=== PATIENT | female | born 1970 | race Caucasian/White ===

== ENCOUNTER → 2017-08-07 06:36 | Outpatient (CLI) | payer OTHER, SELFPAY ==
[2017-08-10 12:52] LABS: HPV Reflexed? NOT INDICATED
== END ==
PROVIDERS: Visit Provider Obstetrics & Gynecology
DX: Z12.4 Encounter for screening for malignant neoplasm of cervix (principal)
CPT/HCPCS: 88175; G0145

== ENCOUNTER → 2017-08-31 16:15 | Outpatient (CLI) | payer OTHER, SELFPAY ==
--- NOTE | 2017-08-31 16:18 | HPBI_ITS ---
MAMMOGRAPHY - BILATERAL SCREENING REASON FOR EXAM: Female, 47 years old. Routine annual screening examination. PERTINENT HISTORY: Grandmother with breast cancer. TECHNIQUE: Digital bilateral breast jah (3D mammographic acquisition) in the CC and MLO projections. 2-D mediolateral oblique (MLO) and craniocaudad (CC) views of both breasts were obtained. CAD: Full Field Digital Mammography with Computer Added Detection was performed. COMPARISON: Comparison is made with prior study dated July 16, 2013. FINDINGS: Breast Composition: The breasts are heterogeneously dense, which may obscure small masses. There are no dominant masses or suspicious calcifications. No other significant abnormalities are identified. There has been no significant change since the prior study. HPBI/SCREENING MAMM (CAD), BILAT IMPRESSION: Stable bilateral screening mammogram. Yearly follow-up mammogram recommended. (A) ASSESSMENT CATEGORY: BIRADS Category 1: Negative. A letter regarding these results will be sent to the patient by the facility within 30 days. Approximately 10% of breast cancers are not detected by mammography. A normal mammogram should not delay biopsy of a clinically suspicious abnormality. [id number] Electronically Signed: Bryce Domínguez MD at 8:18 EST Tel [phone], Service support ,
== END ==
PROVIDERS: Family Provider Internal Medicine; PCP Internal Medicine; Visit Provider Obstetrics & Gynecology
DX: Z12.31 Encounter for screening mammogram for malignant neoplasm of breast (principal)
CPT/HCPCS: 77063; 77067

== ENCOUNTER → 2018-08-20 17:25 | Outpatient (CLI) | payer OTHER, SELFPAY ==
[2018-08-23 13:19] LABS: HPV Reflexed? NOT INDICATED
== END ==
PROVIDERS: Family Provider Internal Medicine; PCP Internal Medicine; Visit Provider Obstetrics & Gynecology
DX: Z12.4 Encounter for screening for malignant neoplasm of cervix (principal)
CPT/HCPCS: 88175; G0145

== ENCOUNTER → 2019-02-02 16:19 | Emergency (ER) | payer OTHER, SELFPAY ==
[2019-02-02 16:20] VITALS: BP 159/82; PULSE 80; RESP 16; TEMP 36.7; O2SAT 100; BMI 25.9
--- NOTE | 2019-02-02 16:37 | NURSING ---
PT LEFT; STATES SHE WAS GOING SOMEWHERE ELSE
== END ==
PROVIDERS: Family Provider Internal Medicine; PCP Internal Medicine
DX: R05 Cough (principal)

== ENCOUNTER → 2019-08-09 07:00 | Outpatient (CLI) | payer OTHER, SELFPAY ==
[2019-02-02 16:20] VITALS: BMI 25.9
--- NOTE | 2019-08-08 16:47 | BI_ITS ---
MAMMOGRAPHY - BILATERAL SCREENING 3-D TOMOSYNTHESIS REASON FOR EXAM: Female, 49 years old. Routine screening PERTINENT HISTORY: Grandmother with breast cancer.. TECHNIQUE: 2-D mammograms and 3-D Tomosynthesis of the breast (s) were performed. CAD was performed. COMPARISON: 08/31/2017 FINDINGS: The breast composition is heterogeneously dense that can obscure small breast masses. Scattered benign calcifications are seen. No dense spiculated masses or suspicious microcalcifications are identified. No architectural distortion is identified. There is no skin thickening or retraction. There has been no significant change since the prior study. BI/SCREEN MAMM (CAD) W/MEREDITH BILAT IMPRESSION: No mammographic signs of malignancy. Routine yearly mammograms recommended. ASSESSMENT CATEGORY: BIRADS Category 2: Benign. A letter regarding these results will be sent to the patient by the facility within 30 days. FOLLOW UP RECOMMENDATION: Yearly follow up mammogram recommended. (A) Approximately 10% of breast cancers are not detected by mammography. A normal mammogram should not delay biopsy of a clinically suspicious abnormality. Electronically Signed: Agus Valdivia MD at 12:59 EST , Service support ,
== END ==
PROVIDERS: PCP Internal Medicine; Referring Provider Obstetrics & Gynecology; Visit Provider Obstetrics & Gynecology
DX: Z12.31 Encounter for screening mammogram for malignant neoplasm of breast (principal)
CPT/HCPCS: 77063; 77067

== ENCOUNTER → 2024-11-19 | Outpatient (CLI) | payer OTHER, SELFPAY ==
--- NOTE | 2024-11-19 12:06 | US_ITS ---
PROCEDURE: THYROID 11/19/2024 REASON FOR EXAM: THYROID ULTRASOUND TECHNIQUE: High-frequency thyroid ultrasound, including grayscale and color-flow images. REFERENCE LINKS: TI-RADS Chart: [email or web address] TI-RADS Calculator Tool with Reference Images: [email or web address]/ COMPARISON: None FINDINGS: Right thyroid lobe size: 3.4 cm x 1.2 cm x 1.2 cm Left thyroid lobe size: 3.1 cm x 1 cm x 1.1 cm Isthmus: 0.2 cm Background parenchymal echotexture is homogeneous. Nodules: No thyroid nodules are seen. Incidental note is made of a 1 cm x 0.7 cm x 0.4 cm benign-appearing left cervical lymph node. US/Thyroid IMPRESSION: No sonographic abnormality is seen. RECOMMENDATION: Based on most suspicious nodule. Nodule size = largest diameter Only evaluate nodule if =>5 mm. Growth > 20% in 2 dimensions = worsening. Follow up to 4 nodules. Recommend biopsy for no more than 2 nodules. Reading Location: [place] [id number]
== END | disposition home or self-care (01) ==
PROVIDERS: PCP Internal Medicine; Referring Provider Internal Medicine; Visit Provider Internal Medicine
DX: E04.9 Nontoxic goiter, unspecified (principal)
CPT/HCPCS: 76536

== ENCOUNTER → 2025-03-17 | Outpatient (CLI) | payer OTHER, SELFPAY ==
--- NOTE | 2025-03-17 08:31 | EKG12_ITS ---
Test Reason : PREOP Blood Pressure : */* mmHG Vent. Rate : 67 BPM Atrial Rate : 67 BPM P-R Int : 110 ms QRS Dur : 86 ms QT Int : 410 ms P-R-T Axes : -6 -30 11 degrees QTcB Int : 433 ms Sinus rhythm with short WI Left axis deviation Abnormal ECG Confirmed by Regulo Vogel ([id number]), loan expeditor CINTHYA LUTZ ([id number]) on 03/17/2025 1:26:34 PM Referred By: Norberto Zepeda Confirmed By: Regulo Vogel
[2025-03-17 09:59] LABS: Hematocrit 41.3 % (37-47); Hemoglobin 14.3 g/dL (12.0-15.0); Immature Granulocytes Count 0.010 X10^3/uL (0.0-0.0); Mean Corp Hgb Conc 34.6 g/dL (32-36); Mean Corpuscular Volume 91.0 fL (81-99); Mean Platelet Vol. 10.0 fl (6.2-12.0); NRBC Flagged by Analyzer 0 % (0-5); Platelet Count 285 K/mm3 (150-450); RBC Distribution Width CV 12.1 % (11.6-14.6); RBC Distribution Width SD 40.2 fl (35.1-43.9); Red Blood Count 4.54 M/mm3 (4.2-5.4); White Blood Count 5.3 K/mm3 (4.4-11.0)
[2025-03-17 10:54] LABS: Anion Gap 9 (5-15); BUN 19 mg/dL (4-19); BUN/Creat Ratio 18.9 RATIO (10-20); Calcium,Total 9.1 mg/dL (7.6-11.0); Carbon Dioxide 25.7 mmol/L (21.0-32.0); Chloride 108 mmol/L (98-108); Glucose 87 mg/dL (70-99); Potassium 4.3 mmol/L (3.3-5.1)
== END | disposition home or self-care (01) ==
PROVIDERS: PCP Internal Medicine; Referring Provider Student in an Organized Health Care Education/Training Program; Visit Provider Student in an Organized Health Care Education/Training Program
DX: Z01.818 Encounter for other preprocedural examination (principal); Z01.810 Encounter for preprocedural cardiovascular examination
CPT/HCPCS: 36415; 80048; 84443; 85025; 93005

== ENCOUNTER 2025-04-16 10:49 | Outpatient (RCR) | payer SELFPAY ==
--- NOTE | 2025-04-16 11:48 | HP.PTEVAL ---
Patient's Visit Information Visit Information Visit Information: PAO VILLA is a 55 year old F referred to Physical Therapy by Dr. Loren Burleson DO with a diagnosis of BPPV. Date of Evaluation: 04/16/25 Physical Therapist: Isabela Green MPT Visit Plan Plan: Pt to go back to Dr Burleson for further evaluation as her L BPPV test was negative twice today. DC PT Subjective Subjective: She is 3 weeks out of meniscus surgery and walks with a cane (meniscectomy). She had PT already this morning for that. She is walking with a straight cane. She does have hearing aides. When she lays down to and turns her head to the L and looks up and she feels like it will come on and she has been avoiding lay in those positions. Her R side seems to be very little. This has been going on for 6 months. Walking and turning her head she has no dizziness. She is a side sleeper and now a back sleeper because of her knee. Pain R knee pain: Pain Intensity (Out of 10): 6 Objective Objective: -L Hallpike for nystagmus. Pt felt like she might start to get dizzy and did slightly but it did not amount to room spinning dizziness...it subsided a little but not much. Went ahead and tried to treat with L EPLY just to see if it would be helpful. She did not have any dizziness with turning head to the R or rolling onto her R side. When she sat up she had dizziness and the wall was looking like it was moving. It subsided after about 1 minute. Pt asked me to try the L Hallpike again and again she had no nystagmus and a possible sensation of dizziness but no actual dizziness. Went ahead and tried L Eply again and same thing happened as the first time. Test smooth pursuit vertical and horizontal and pt followed appropriately and had not dizziness. Also test head and eyes moving together horizontally and she had no dizziness or symptoms or abnormal movement with that. Pt was able to walk out and she commented that she had no dizziness and was fine Balance/Special Test Scores Dizziness Score: 26 Anticipated Interventions Text: Thank you for the opportunity to evaluate your patient. For Medicare and Medicare HMO plans, please review the plan of care and approve it. It will need to be FAXED BACK to us at [phone] for Medicare purposes. For Medicare only, by signing this I certify the plan of care. Please let me know if there are questions or concerns regarding this plan of care. Physician Signature: Date:
--- NOTE | 2025-04-16 11:48 | HP.PTDCSUM ---
Discharge Summary D/C summary: It has been my pleasure to treat PAO VILLA referred by Dr. Loren Burleson DO, with the diagnosis of BPPV for a total of 1 visit(s). Discharge Date: 04/16/25 Please see the following information for a summary of their discharge status. Pain R knee pain: Pain Intensity (Out of 10): 6 Plan Plan: Pt to go back to Dr Burleson for further evaluation as her L BPPV test was negative twice today. DC PT D/C Information Discharge Comments: DC PT and Pt to go back to for further evaluation d/c sentence: If there are questions or concerns regarding this patient's physical therapy, please feel free to call me at [phone]. Thank you for the referral of this patient. Sincerely, Isabela Green, MPT Balance/Gait/Functional tests Balance/Special Test Scores Dizziness Score: 26
== END 2025-04-16 12:52 | disposition home or self-care (01) ==
LOC: PT 10:49
PROVIDERS: PCP Internal Medicine; Referring Provider Internal Medicine; Visit Provider Internal Medicine
DX: H81.12 Benign paroxysmal vertigo, left ear (principal)
CPT/HCPCS: 97161